=== PATIENT | male | born 1945 | race Caucasian/White ===

== ENCOUNTER → 2024-12-24 | Outpatient (CLI) | payer MEDICARE, SELFPAY ==
--- NOTE | 2024-12-24 14:55 | RAD_ITS ---
PROCEDURE: PELVIS 1 OR 2 VIEWS 12/24/2024 REASON FOR EXAM: INFLAMMATORY POLYARTHROPATHY TECHNIQUE: PELVIS 1 OR 2 VIEWS COMPARISON: None. FINDINGS: The bony pelvis is intact. The SI joints are normal. There is degenerative disc disease L2-3 through L4-5. There is no significant arthropathy of either hip joint. There are no significant soft tissue abnormalities. RAD/Pelvis 1 or 2 Views IMPRESSION: No significant arthropathy of the SI joints are hips. Other findings as noted. Reading Location: [place] [id number]
--- NOTE | 2024-12-24 14:56 | RAD_ITS ---
PROCEDURE: HAND MIN 3 VIEWS 12/24/2024 REASON FOR EXAM: INFLAMMATORY POLYARTHROPATHY TECHNIQUE: HAND MIN 3 VIEWS Laterality: Right COMPARISON: None. FINDINGS: Bones: No acute bony abnormalities. Joints: Proximal and distal interphalangeal joints space narrowing with sclerosis. No bony erosion. Soft tissues: No soft tissue abnormalities. 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 Reading Location: [id number]
--- NOTE | 2024-12-24 14:56 | RAD_ITS ---
PROCEDURE: HAND MIN 3 VIEWS 12/24/2024 REASON FOR EXAM: INFLAMMATORY POLYARTHROPATHY TECHNIQUE: HAND MIN 3 VIEWS Laterality: Left COMPARISON: None. FINDINGS: Bones: No acute bony abnormalities. Joints: Joint space narrowing and sclerosis at the proximal and distal interphalangeal joint. Soft tissues: No soft tissue abnormalities. 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 Reading Location: [id number]
[2024-12-24 18:02] LABS: Hematocrit 40.7 % (40-54); Hemoglobin 13.0 g/dL (13.0-16.5); Immature Granulocytes Count 0.010 X10^3/uL (0.0-0.0); Mean Corp Hgb Conc 31.9 g/dL (32-36); Mean Corpuscular Volume 88.3 fL (80-94); Mean Platelet Vol. 12.1 fl (6.2-12.0); NRBC Flagged by Analyzer 0 % (0-5); Platelet Count 116 K/mm3 (150-450); RBC Distribution Width CV 14.0 % (11.6-14.6); RBC Distribution Width SD 44.9 fl (35.1-43.9); Red Blood Count 4.61 M/mm3 (4.6-6.2); White Blood Count 6.4 K/mm3 (4.4-11.0)
[2024-12-24 19:17] LABS: AST(SGOT) 22 U/L (<=37); Alanine Aminotransfer ALT/SGPT 30 U/L (<=46); Albumin, Serum 4.2 g/dL (3.4-4.8); Alkaline Phosphatase 133 U/L (40-129); Anion Gap 13 (5-15); BUN 23 mg/dL (4-19); BUN/Creat Ratio 24.1 RATIO (10-20); Calcium,Total 9.7 mg/dL (7.6-11.0); Carbon Dioxide 23.8 mmol/L (21.0-32.0); Chloride 103 mmol/L (98-108); Globulin 3.0 g/dL (2.2-4.2); Glucose 91 mg/dL (70-99); Hepatitis B Surface Antigen Nonreactive (Nonreactive); Hepatitis C Antibody Nonreactive (Nonreactive); Potassium 4.4 mmol/L (3.3-5.1)
[2024-12-24 19:35] LABS: CRP < 3.00 mg/L (0.0-3.0)
[2024-12-26 12:09] LABS: ANTINUCLEAR ANTIBODIES DIRECT Positive (Negative)
== END | disposition home or self-care (01) ==
PROVIDERS: Referring Provider Internal Medicine Rheumatology; Visit Provider Internal Medicine Rheumatology
DX: M06.4 Inflammatory polyarthropathy (principal); M19.041 Primary osteoarthritis, right hand; M19.042 Primary osteoarthritis, left hand; M47.897 Other spondylosis, lumbosacral region; M50.30 Other cervical disc degeneration, unspecified cervical region
CPT/HCPCS: 36415; 72170; 73130; 80053; 85025; 85652; 86038; 86140; 86200; 86431; 86706; 86803; 87340